=== PATIENT | male | born 1955 | race Caucasian/White ===

== ENCOUNTER 2018-10-30 03:28 | Emergency (ER) | payer OTHER ==
[2018-10-30 03:40] VITALS: RESP 18
[2018-10-30] MEDS ORDERED: SODIUM CHLORIDE 0.9% 1,000 ML IV ONE (03:49)
[2018-10-30] MEDS ORDERED: LIDOCAINE/EPINEPHR/TETRACAINE 5 ML BOTTLE TOPICAL ONE (03:50)
[2018-10-30] MEDS ORDERED: DIPH,PERTUS(ACELL)TETVAC-LF 0.5 ML VIAL IM ONE (04:05)
--- NOTE | 2018-10-30 04:05 | ED ---
Fall HPI - General Chief Complaint: Fall Stated Complaint: Fall, [facility] Time Seen by Provider: 10/30/18 03:49 Source: patient, EMS Mode of arrival: EMS - History of Present Illness Initial Comments: Aj is a 63-year-old woman presents the ED via EMS for evaluation of laceration to the head. Patient was standing on the back of his tractor-trailer it was not in motion, he lost his balance falling backwards, he struck his head on the asphalt. He did not lose consciousness he was ambulatory on scene however considering that this was a work related accident he didn't sustain a head injury he was encouraged come to the ER for evaluation. Patient denies any additional injuries. He does not recall when his last tetanus vaccination was. - Related Data Allergies Allergy/AdvReac Type Severity Reaction Status Date / Time No Known Allergies Allergy Verified 10/30/18 03:40 Review of Systems ROS Statement: Those systems with pertinent positive or pertinent negative responses have been documented in the HPI. ROS Other: All systems not noted in ROS Statement are negative. Past Medical History Past Medical History: Hypertension History of Any Multi-Drug Resistant Organisms: None Reported Past Surgical History: Back Surgery, Cholecystectomy, Orthopedic Surgery Past Psychological History: No Psychological Hx Reported Smoking Status: Never smoker Past Alcohol Use History: Rare Past Drug Use History: None Reported General Exam - General Exam Comments Initial Comments: Physical Exam GENERAL: Patient is well-developed and well-nourished. Patient is nontoxic and well-hydrated and is in no distress. HENT: Normocephalic Hematoma over the occiput with a small laceration bleeding is controlled EYES: PERRL, EOMI PULMONARY: Unlabored respirations. No audible rales rhonchi or wheezing was noted. CARDIOVASCULAR: There is a regular rate and rhythm without any murmurs gallops or rubs. ABDOMEN: Soft and nontender with normal bowel sounds. SKIN: Skin is clear with no lesions or rashes and otherwise unremarkable. : Deferred NEUROLOGIC: Patient is alert and oriented x3. Moving all extremities spontaneously MUSCULOSKELETAL: Normal extremities with adequate strength and full range of motion. No lower extremity swelling or edema. No calf tenderness. No midline cervical spinal tenderness PSYCHIATRIC: Normal psychiatric evaluation. Limitations: no limitations Limitations: no limitations Course Vital Signs 10/30/18 10/30/18 03:34 05:14 Temperature 98.7 F 98.4 F Pulse Rate 91 74 Respiratory 18 18 Rate Blood Pressure 146/83 136/78 O2 Sat by Pulse 97 98 Oximetry Procedures - Laceration Laceration #1 Consent Obtained: verbal consent Indication: laceration Site: scalp Description: linear Depth: simple, single layer Anesthesia Technique: local infiltration Amount (mls): 1 Pre-repair: wound explored, irrigated extensively, deep structures intact Type of Sutures: nylon Size of Sutures: 3-0 Number of Sutures: 2 Medical Decision Making - Medical Decision Making Patient was seen and evaluated per ATLS protocol, there are no immediate identified threats to airway, breathing or circulation next line secondary survey does reveal a hematoma to the occiput with a small laceration no active bleeding no other injuries identified Imaging, topical let and tetanus were ordered CT imaging with no acute intracranial abnormality Scalp laceration repaired with 2 nylon sutures Patient tolerated procedure well Patient discharged home instable condition Disposition Clinical Impression: Fall, Laceration of scalp Disposition: HOME SELF-CARE Instructions (If sedation given, give patient instructions): Care For Your Stitches (DC) Is patient prescribed a controlled substance at d/c from ED?: No When asked, does pt state using other controlled substances?: No Referrals: Nonstaff,Physician [Primary Care Provider] - 1-2 days
--- NOTE | 2018-10-30 04:40 | CT ---
EXAM: CT Head Without Intravenous Contrast CLINICAL HISTORY: fall, head lac TECHNIQUE: Axial computed tomography images of the head/brain without intravenous contrast. CTDI is 45.29 mGy and DLP is 995.7 mGy-cm. This CT exam was performed using one or more of the following dose reduction techniques: automated exposure control, adjustment of the mA and/or kV according to patient size, and/or use of iterative reconstruction technique. COMPARISON: No relevant prior studies available. FINDINGS: Brain: Unremarkable. No hemorrhage. No significant white matter disease. No edema. Ventricles: Unremarkable. No ventriculomegaly. Bones/joints: Unremarkable. No acute fracture. Soft tissues: Soft tissue swelling/hematoma overlies the posterior right parietal calvarium. Sinuses: Unremarkable as visualized. No acute sinusitis. Mastoid air cells: Unremarkable as visualized. No mastoid effusion. Orbits: Proptosis is suggested. IMPRESSION: 1. No acute intracranial pathology. 2. Soft tissue swelling/hematoma overlies the posterior right parietal calvarium. No acute fracture. 3. Proptosis is suggested. Correlate clinically. EXAM: CT Cervical Spine Without Intravenous Contrast CLINICAL HISTORY: fall, head lac TECHNIQUE: Axial computed tomography images of the cervical spine without intravenous contrast. CTDI is 17.49 mGy and DLP is 473 mGy-cm. This CT exam was performed using one or more of the following dose reduction techniques: automated exposure control, adjustment of the mA and/or kV according to patient size, and/or use of iterative reconstruction technique. COMPARISON: No relevant prior studies available. FINDINGS: Vertebrae: No evidence of acute fracture or traumatic malalignment. Mild/moderate spondylosis with varying degrees of central canal and foramina stenoses, most notable at C6-C7. Discs/spinal canal/neural foramina: See above. Soft tissues: Unremarkable on this noncontrast study. Lung apices: Mild biapical emphysematous changes are noted. IMPRESSION: 1. No evidence of acute fracture or traumatic malalignment. 2. Mild/moderate spondylosis with varying degrees of central canal and foramina stenoses, most notable at C6-C7. MRI of the cervical spine at be obtained for further evaluation, if clinically indicated.
[2018-10-30] MEDS ORDERED: LIDOCAINE 1% INJ 10MG/ML (20 ML MDV) SQ ONE (04:44)
[2018-10-30 05:39] VITALS: BP 136/78; PULSE 74; TEMP 98.4
--- NOTE | 2018-10-31 02:49 | CDI ---
Documentation Clarification OP Dear Nette NOVAK, DO Please do addendum to ED report that describes the length and depth of the repair. Thank you, Dai Pope Journal Box Inspector If you have any question, Please contact billing services manager at [phone] [facility]
== END 2018-10-30 05:15 | disposition home or self-care (01) ==
LOC: EC 03:28
DX: S01.01XA Laceration without foreign body of scalp, initial encounter (principal); Z23 Encounter for immunization; W17.89XA Other fall from one level to another, initial encounter; Y99.0 Civilian activity done for income or pay
CPT/HCPCS: 72125; 70450; 90715; 99284; 12001; 90471; J2001

== ENCOUNTER 2021-12-24 18:18 | Emergency (ER) | payer OTHER ==
[2021-12-24] MEDS ORDERED: DIPH,PERTUS(ACELL)TETVAC-LF 0.5 ML VIAL IM ONE (18:23)
[2021-12-24] MEDS ORDERED: HYDROmorphone 1 MG/ML 1 ML SYRINGE IVP STA ×2 (18:23→18:47)
[2021-12-24] MEDS ORDERED: SODIUM CHLORIDE 0.9% 1,000 ML IV STA (18:23)
[2021-12-24 18:51] LABS: Basophils # (A) 0.1 k/uL (0-0.2); Basophils % (A) 1 %; Eosinophils # (A) 0.2 k/uL (0-0.7); Eosinophils % (A) 2 %; HCT 42.4 % (39.0-53.0); HGB 13.9 gm/dL (13.0-17.5); Lymphocytes # (A) 2.9 k/uL (1.0-4.8); Lymphocytes % (A) 29 %; MCH 29.3 pg (25.0-35.0); MCHC 32.9 g/dL (31.0-37.0); MCV 89.1 fL (80.0-100.0); Mean Platelet Volume 7.5; Monocytes # (A) 0.4 k/uL (0-1.0); Monocytes % (A) 4 %; Neutrophils # (A) 6.3 k/uL (1.3-7.7); Neutrophils % (A) 63 %; Platelet Count 217 k/uL (150-450); RBC 4.76 m/uL (4.30-5.90); RDW 13.9 % (11.5-15.5)
[2021-12-24] MEDS ORDERED: KETAMINE 10 MG/ML 20 ML VIAL IV STA (18:55)
[2021-12-24 19:03] LABS: Calcium 11.1 mg/dL (8.4-10.2); Total Bilirubin 2.8 mg/dL (0.2-1.3); Total Protein 7.6 g/dL (6.3-8.2)
[2021-12-24 19:11] VITALS: BP 107/84; PULSE 72; RESP 16
--- NOTE | 2021-12-24 19:13 | XR ---
EXAMINATION TYPE: XR hand complete RT DATE OF EXAM: 12/24/2021 COMPARISON: NONE HISTORY: Laceration TECHNIQUE: 3 views FINDINGS: There is comminuted fracture of the Mid shaft of the first metacarpal. There is soft tissue deformity and laceration. No foreign body seen. The other metacarpals appear intact. Fingers are intact. IMPRESSION: Comminuted and displaced fracture of the first metacarpal. Laceration deformity.
--- NOTE | 2021-12-24 19:19 | ED ---
Trauma HPI - General Stated Complaint: Arm Lac/Trauma Time Seen by Provider: 12/24/21 18:22 Source: patient Mode of arrival: ambulatory Limitations: no limitations - History of Present Illness Initial Comments: Aj is a [id number] 66-year-old male who presents to the emergency department today with a complaint of injury to the right thumb. Patient reports that he was using a circular saw, the gregg on the salt was not down and he inadvertently brought the saw down the back of his right hand cutting through his glove and his thumb. Patient is a nonsmoker, he is well-controlled diabetic on metformin. - Related Data Allergies Allergy/AdvReac Type Severity Reaction Status Date / Time No Known Allergies Allergy Verified 12/24/21 18:26 Review of Systems ROS Statement: Those systems with pertinent positive or pertinent negative responses have been documented in the HPI. ROS Other: All systems not noted in ROS Statement are negative. Past Medical History Past Medical History: Hypertension History of Any Multi-Drug Resistant Organisms: None Reported Past Surgical History: Back Surgery, Cholecystectomy, Orthopedic Surgery Past Psychological History: No Psychological Hx Reported Past Alcohol Use History: Rare Past Drug Use History: None Reported General Exam - General Exam Comments Initial Comments: Physical Exam GENERAL: Pale, diaphoretic HENT: Normocephalic, Atraumatic. EYES: PERRL, EOMI PULMONARY: Tachypnea, unlabored CARDIOVASCULAR: There is a regular rate and rhythm without any murmurs gallops or rubs. Tourniquet on right forearm upon arrival, there are week but palpable radial and ulnar pulses on right ABDOMEN: Soft and nontender with normal bowel sounds. SKIN: Large macerated laceration at the base of the right thumb, from the dorsal surface through the thumb to the thenar eminence since, palmar surface of the thumb is intact. Bone fragment and ligaments are visible in the wound : Deferred NEUROLOGIC: Patient is alert and oriented x3. MUSCULOSKELETAL: Patient is still able to oppose the thumb but cannot extend, there is obvious laceration of the extensor tendons PSYCHIATRIC: Normal psychiatric evaluation. Limitations: no limitations Course Vital Signs 12/24/21 12/24/21 12/24/21 18:24 18:40 19:09 Pulse Rate 61 78 72 Respiratory 20 18 16 Rate Blood Pressure 108/56 117/53 107/84 O2 Sat by Pulse 98 97 98 Oximetry Medical Decision Making - Medical Decision Making The patient was seen and evaluated Labs, pain medications and x-rays were ordered The patient and are certainly the patient is up-to-date on tetanus vaccine Patient has large soft tissue defect with obvious fracture and injury to the tendons. However patient does not have any major vascular injuries or significant bleeding. Patient care was discussed with orthopedics design/animation instructor Dr. Carver who recommended patient be transferred to a facility with hand surgery available X-rays confirm an open fracture. Patient requests transfer to [place] as he lives in the area, patient care was d iscussed with trauma surgeon at [facility] who accepts the transfer. Patient received 1 more milligram of Dilaudid while he attempted to wash out the hand however pain was managed and he received 30 mg IV ketamine, patient was much more relaxed tolerated washout. Patient remained resting in bed with guardrails up after washout. Patient received 2 g Ancef in the emergency department Patient repeat dose of ketamine prior to transfer - Lab Data Result diagrams: 12/24/21 18:31 12/24/21 18:31 Lab Results 12/24/21 12/24/21 12/24/21 Range/Units 18:31 18:31 18:31 WBC 10.0 (3.8-10.6) k/uL RBC 4.76 (4.30-5.90) m/uL Hgb 13.9 (13.0-17.5) gm/dL Hct 42.4 (39.0-53.0) % MCV 89.1 (80.0-100.0) fL MCH 29.3 (25.0-35.0) pg MCHC 32.9 (31.0-37.0) g/dL RDW 13.9 (11.5-15.5) % Plt Count 217 (150-450) k/uL MPV 7.5 Neutrophils % 63 % Lymphocytes % 29 % Monocytes % 4 % Eosinophils % 2 % Basophils % 1 % Neutrophils # 6.3 (1.3-7.7) k/uL Lymphocytes # 2.9 (1.0-4.8) k/uL Monocytes # 0.4 (0-1.0) k/uL Eosinophils # 0.2 (0-0.7) k/uL Basophils # 0.1 (0-0.2) k/uL PT (9.0-12.0) sec INR (<1.2) APTT (22.0-30.0) sec Sodium 138 (137-145) mmol/L Potassium 4.0 (3.5-5.1) mmol/L Chloride 101 (98-107) mmol/L Carbon Dioxide 22 (22-30) mmol/L Anion Gap 15 mmol/L BUN 15 (9-20) mg/dL Creatinine 1.15 (0.66-1.25) mg/dL Est GFR (CKD-EPI)AfAm 78 (>60 ml/min/1.73 sqM) Est GFR (CKD-EPI)NonAf 67 (>60 ml/min/1.73 sqM) Glucose 170 H (74-99) mg/dL Calcium 11.1 H (8.4-10.2) mg/dL Total Bilirubin 2.8 H (0.2-1.3) mg/dL AST 33 (17-59) U/L ALT 34 (4-49) U/L Alkaline Phosphatase 73 (38-126) U/L Total Protein 7.6 (6.3-8.2) g/dL Albumin 5.0 (3.5-5.0) g/dL Blood Type O Positive Blood Type Confirm Blood Type Recheck No Previous Record Bld Type Recheck Status CABO Indicated Antibody Screen NEGATIVE Spec Expiration Date 12/27/2021 - 233012/24/21 12/24/21 Range/Units 18:35 19:43 WBC (3.8-10.6) k/uL RBC (4.30-5.90) m/uL Hgb (13.0-17.5) gm/dL Hct (39.0-53.0) % MCV (80.0-100.0) fL MCH (25.0-35.0) pg MCHC (31.0-37.0) g/dL RDW (11.5-15.5) % Plt Count (150-450) k/uL MPV Neutrophils % % Lymphocytes % % Monocytes % % Eosinophils % % Basophils % % Neutrophils # (1.3-7.7) k/uL Lymphocytes # (1.0-4.8) k/uL Monocytes # (0-1.0) k/uL Eosinophils # (0-0.7) k/uL Basophils # (0-0.2) k/uL PT 12.7 H (9.0-12.0) sec INR 1.2 H (<1.2) APTT 22.1 (22.0-30.0) sec Sodium (137-145) mmol/L Potassium (3.5-5.1) mmol/L Chloride (98-107) mmol/L Carbon Dioxide (22-30) mmol/L Anion Gap mmol/L BUN (9-20) mg/dL Creatinine (0.66-1.25) mg/dL Est GFR (CKD-EPI)AfAm (>60 ml/min/1.73 sqM) Est GFR (CKD-EPI)NonAf (>60 ml/min/1.73 sqM) Glucose (74-99) mg/dL Calcium (8.4-10.2) mg/dL Total Bilirubin (0.2-1.3) mg/dL AST (17-59) U/L ALT (4-49) U/L Alkaline Phosphatase (38-126) U/L Total Protein (6.3-8.2) g/dL Albumin (3.5-5.0) g/dL Blood Type Blood Type Confirm O Positive Blood Type Recheck Bld Type Recheck Status Antibody Screen Spec Expiration Date Critical Care Time Critical Care Time: Yes Total Critical Care Time: 30 Disposition Clinical Impression: Open fracture of right thumb, Laceration of extensor muscle and tendon of thumb at wrist and hand level Disposition: OTHER INSTITUTION NOT DEFINED Condition: Serious Is patient prescribed a controlled substance at d/c from ED?: No Referrals: Nonstaff,Physician [Primary Care Provider] - 1-2 days - Out of Hospital Transfer - Req. Specs Out of Hospital Transfer - Requested Specifics: Other Emergency Center ([facility])
[2021-12-24] MEDS ORDERED: KETAMINE 50 MG/ML 10 ML VIAL IV STA (19:45)
[2021-12-24 20:08] LABS: INR 1.2 (<1.2); Partial Thromboplastin Time 22.1 sec (22.0-30.0); Prothrombin Time 12.7 sec (9.0-12.0)
== END 2021-12-24 20:00 | disposition other institution (70) ==
LOC: EC 18:18
DX: S62.501A Fracture of unspecified phalanx of right thumb, initial encounter for closed fracture (principal); S66.201A Unspecified injury of extensor muscle, fascia and tendon of right thumb at wrist and hand level, initial encounter; I10 Essential (primary) hypertension; W26.8XXA Contact with other sharp object(s), not elsewhere classified, initial encounter
CPT/HCPCS: 36415; 86900; 86901; 80053; 85025; 85610; 85730; 86850; 73130; 96365; 96375; 96376; 99285; J0690; J1170